=== PATIENT | male | born 1990 | race Caucasian/White ===

== ENCOUNTER 2019-10-24 15:05 | Emergency (ER) | payer MEDICAID ==
--- NOTE | 2019-10-24 15:22 | Emergency Department Record ---
History of Present Illness - General Chief complaint: Male Urogenital Problem Stated complaint: VASECTOMY COMPLICATIONS Time Seen by Provider: 10/24/19 15:09 Source: Patient Mode of Arrival: Ambulatory Limitations: No limitations - History of Present Illness Initial comments: The patient is here due to a one week hx of R testicle pain and swelling. He did have a vasectomy performed 2 weeks ago in [place]. Over the last week the R testicle has become more painful and swollen. He denies any trauma, fever, dysuria, or AP. MD Complaint: Testicle swelling Onset/Timin -: Week(s) Location: Right testicle Severity: Mild Severity scale (1-10): 5 Reports: Denies other symptoms - Related Data Home Medications Medication Instructions Recorded Confirmed Last Taken Levothyroxine Sodium 25 mcg PO DAILY 10/24/19 10/24/19 Unknown Lurasidone HCl [Latuda] 20 mg PO DAILY 10/24/19 10/24/19 Unknown Trazodone HCl 50 mg PO QHS 10/24/19 10/24/19 Unknown Previous Rx's Medication Instructions Recorded Cephalexin [Keflex] 500 mg PO QID #28 cap 10/24/19 Levofloxacin [Levaquin] 500 mg PO DAILY #7 tablet 10/24/19 Naproxen [Naprosyn] 500 mg PO BID #14 tablet. 10/24/19 Allergies Allergy/AdvReac Type Severity Reaction Status Date / Time No Known Drug Allergies Allergy Verified 10/24/19 15:08 Travel Screening - Travel/Exposure Within Last 30 Days Have you traveled within the last 30 days?: No Review of Systems Constitutional: Denies: Chills, Fever Eyes: Denies: Eye discharge ENT: Denies: Congestion Respiratory: Denies: Cough, Dyspnea Past Medical History - SOCIAL HISTORY Smoking Status: Never smoker Alcohol Use: None Drug Use: None - RESPIRATORY Hx Respiratory Disorders: No - CARDIOVASCULAR Hx Cardio Disorders: No - NEURO Hx Neuro Disorders: No - GI Hx GI Disorders: No - Hx Genitourinary Disorders: No - ENDOCRINE Hx Endocrine Disorders: Yes Hx Thyroid Disease: Yes - MUSCULOSKELETAL Hx Musculoskeletal Disorders: No - PSYCH Hx Psych Problems: Yes Hx Anxiety: Yes Hx Depression: Yes - HEMATOLOGY/ONCOLOGY Hx Hematology/Oncology Disorders: No Family Medical History Any Significant Family History?: No Physical Exam - General General Appearance: Alert, Oriented x3, Cooperative, No acute distress - Head Head exam: Atraumatic, Normocephalic, Normal inspection - Eye Eye exam: Normal appearance, PERRL - ENT Throat exam: Normal inspection. negative: Tonsillar erythema, Tonsillar exudate - Neck Neck exam: Normal inspection, Full ROM. negative: Tenderness - Respiratory Respiratory exam: Normal lung sounds bilaterally. negative: Respiratory distress - Cardiovascular Cardiovascular Exam: Regular rate, Normal rhythm, Normal heart sounds - GI/Abdominal GI/Abdominal exam: Soft, Normal bowel sounds. negative: Tenderness - exam: Scrotal swelling, Testicular tenderness (On R only.). negative: Circumcision, Normal inspection (There is mild R scrotal swelling and tenderness and erythema.), Urethral discharge - Extremities Extremities exam: Normal inspection, Full ROM, Normal capillary refill. negative: Tenderness - Neurological Neurological exam: Alert, Normal gait, Oriented X3. negative: Abnormal gait, Altered, Motor sensory deficit - Psychiatric Psychiatric exam: negative: Agitated - Skin Skin exam: negative: Rash Course Vital Signs 10/24/19 15:06 Temperature 99.0 F Pulse Rate 90 Respiratory 18 Rate Blood Pressure 127/84 Pulse Ox 97 - Reevaluation(s) Reevaluation #1: I did discuss the case with Sandrine CEBALLOS) who is community relations manager for the patient's Urologist Dr. Mullen and she does agree with the plan to start the patient on abx's and would like him to be seen in the office the next couple of days. 10/24/19 17:36 Reevaluation #2: The patient is doing very well at this time. I did discuss the need to F/U with the patient and he understands the plan. 10/24/19 17:54 Medical Decision Making - Data Complexity MDM Data: Labs Ordered and/or Reviewed, X-Ray Ordered and/or Reviewed - Lab Data Result diagrams: 10/24/19 15:25 10/24/19 15:25 - Radiology Data Radiology results: Report reviewed (Scrotal US: Prob R epididymitis with diffuse wall thickening of the R side of the scrotum which may represent edema and/or cellulitis.) Disposition Disposition: Discharge Clinical Impression: Infection of scrotum Disposition: Home, Self-Care Condition: (2) Stable Instructions: Scrotal Pain (ED) Additional Instructions: Please take the Keflex and Levaquin as directed and please see your Urologist in 1-2 days for recheck. Return to the ER for any worsening symptoms, pain, fever, or swelling. Take the Naprosyn for pain. Prescriptions: Cephalexin [Keflex] 500 mg PO QID #28 cap Levofloxacin [Levaquin] 500 mg PO DAILY #7 tablet Naproxen [Naprosyn] 500 mg PO BID #14 tablet.dr Forms: Patient Portal Access Time of Disposition: 17:57 Quality - Quality Measures Quality Measures: N/A - Blood Pressure Screening View Details: Yes Does Patient Have Any of the Following: No Blood Pressure Classification: Pre-Hypertensive BP Reading Systolic Measurement: 127 Diastolic Measurement: 84 Screening for High Blood Pressure: < Pre-Hypertensive BP, F/U Documented > [G8950] Pre-Hypertensive Follow-up Interventions: Referral to alternative/primary care provider.
[2019-10-24 15:35] LABS: ABSOLUTE NEUTROPHIL COUNT 8.71; HEMATOCRIT 41.9 % (42.0-52.0); HEMOGLOBIN 13.8 gm/dl (14.0-18.0); MEAN CORPUSCULAR HEMOGLOBIN 28.3 pg (27-33); MEAN CORPUSCULAR HGB CONC 32.9 g/dl (32-36); MEAN PLATELET VOLUME 9.8 fl (7.4-10.4); PLATELET COUNT 221 K/uL (130-400); RED BLOOD COUNT 4.87 M/uL (4.40-5.70); RED CELL DISTRIBUTION WIDTH 14.2 % (11.5-14.5); URINE APPEARANCE CLEAR; URINE BILIRUBIN NEGATIVE (NEGATIVE); URINE BLOOD NEGATIVE (NEGATIVE); URINE COLOR YELLOW; URINE GLUCOSE (UA) NEGATIVE (NEGATIVE); URINE KETONE NEGATIVE (NEGATIVE); URINE LEUKOCYTE ESTERASE NEGATIVE (NEGATIVE); URINE NITRITE NEGATIVE (NEGATIVE); URINE PROTEIN NEGATIVE (NEGATIVE); URINE UROBILINOGEN 0.2 E.U./dL (0.20 - 1.00); WHITE BLOOD COUNT W/O DIFF 10.5 K/uL (4.2-12.2)
[2019-10-24 15:47] LABS: BLOOD UREA NITROGEN 14 mg/dL (6-20); EST GLOMERULAR FILTRATION RATE > 60 mL/min
[2019-10-24 15:50] LABS: GLUCOSE,RANDOM 88 mg/dL (74-109)
[2019-10-24] MEDS ORDERED: KETOROLAC 30 MG/ML VIAL IM ONE (17:04)
--- NOTE | 2019-10-24 17:07 | ULTRASOUND REPORT ---
EXAMINATION: Ultrasound of the Scrotum EXAM DATE: 10/24/2019 4:45 PM TECHNIQUE: Ultrasound of the scrotum and contents INDICATION: R testicle pain after surgery COMPARISON: None FINDINGS: Testicles: The right testicle measures 2.7 x 3.9 x 2.3 cm in dimension. The left testicle measures 3.1 x 4.0 x 2.0 cm in dimension. The testicles have a normal homogeneous echogenicity. No mass is present. Epididymides: The right epididymis is heterogeneous and enlarged. There is increased Doppler flow wit hin the right epididymis. Scrotum: There is diffuse scrotal wall thickening/edema, most prominently along the right side of the scrotum. COMPLETE DUPLEX DOPPLER OF THE TESTICLES: There is appropriate arterial and venous Doppler flow withi n the testicles. There is a subcentimeter left inguinal lymph node which measures 0.8 x 0.6 cm. IMPRESSION: 1. Unremarkable sonographic appearance of the testicles without evidence of torsion. 2. Probable right epididymitis. 3. Diffuse wall thickening of the right side of the scrotum may represent edema and/or cellulitis. 4. Subcentimeter left inguinal lymph node. Dictated by: Marco A Rose on 10/24/2019 5:01 PM. .
[2019-10-24] MEDS ORDERED: KETOROLAC 30 MG/ML VIAL IVP ONE (17:11)
[2019-10-24] MEDS ORDERED: CEFTRIAXONE 1GM/50ML BAG 1 GM/50 ML BAG IVPB ONE (17:11)
== END 2019-10-24 18:10 | disposition home or self-care (01) ==
LOC: ER 15:05
DX: N49.2 Inflammatory disorders of scrotum (principal); Z98.52 Vasectomy status
CPT/HCPCS: 99284 ×2; 96365; 96375; 80048; 81003; 85027; 76870; J1885; J0696